=== PATIENT | female | born 1990 | race Two or more races ===

== ENCOUNTER 2018-02-09 16:44 | Emergency (ER) | payer MEDICAID ==
[2018-02-09] MEDS ORDERED: HYDROmorphone 0.5 MG/0.5 ML SYRINGE IM ONE (17:44)
[2018-02-09] MEDS ORDERED: Ketorolac 60 MG/2 ML SDV IM ONE (17:44)
[2018-02-09] MEDS ORDERED: Diazepam 5 MG Tab PO ONE (17:44)
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
--- NOTE | 2018-02-10 10:33 | CR ---
Lumbar spine: AP and lateral views of the lumbar spine were obtained. Comparison: No previous study. Vertebral body heights and disc spaces are maintained. Scoliosis is present. Pedicles as well as visualized transverse and spinous processes are intact. Sacroiliac joints are unremarkable. No fracture or other bony abnormality is seen. Impression: 1. Scoliosis. Two-view lumbar spine study is otherwise unremarkable. Diagnostic code #2
== END 2018-02-09 19:00 | disposition home or self-care (01) ==
LOC: JD.ED 16:44
DX: M54.42 Lumbago with sciatica, left side (principal); Z79.899 Other long term (current) drug therapy; V49.9XXA Car occupant (driver) (passenger) injured in unspecified traffic accident, initial encounter
CPT/HCPCS: 72100; 96372; 99284; A9270; J1170; J1885